=== PATIENT | female | born 1955 | race Caucasian/White ===

== ENCOUNTER → 2023-12-08 13:24 | Outpatient (REF) | payer MEDICARE, SELFPAY | LOC: WDC 13:24 | PROVIDERS: ATTENDING PHYSICIAN Family Medicine | DX: R92.30 Dense breasts, unspecified (principal); R92.2 Inconclusive mammogram | CPT/HCPCS: 76641 ==

== ENCOUNTER 2024-04-03 09:58 | Emergency (ER) | payer MEDICARE, SELFPAY ==
[2024-04-03 10:02] VITALS: BP 103/61
--- NOTE | 2024-04-03 11:41 | EDRN ---
the pt has a RCW central line noted, provider aware, the pt pressed the call ivy and this RN entered the pts room, the pt stated that she needed to urinate, this RN unhooked the pt from the monitor and the pt was able to ambulate x1 assist to the
bathroom and back to the stretcher with no issues, will continue to monitor the pt closely
[2024-04-03 12:00] VITALS: BP 115/75
--- NOTE | 2024-04-03 12:40 | ED.GENMED ---
History of Present Illness
General
Chief Complaint: Catheter/Tube Problem
Source: patient and spouse
Time Seen by Provider: 04/03/24 10:17
Nursing documentation reviewed up to this point in time: agreed with
History of Present Illness
History of Present Illness:
The patient is a pleasant 68-year-old female with past medical history of pulmonary hypertension, followed by Dr. Josephine Guillaume at [facility]. Patient reports that she is here because her right chest wall catheter has torn. Patient reports
that the infusion of the Renodolin is no longer going in due to the torn catheter. She is asking if we can replace or repair the catheter. Patient denies any other complaints including chest pain, shortness of breath, fever and chills. The
patient reports that her catheter was placed and repaired at [facility].
Past History
Past History
ED Past Medical History: Arrthythmia (afib on Xarelto), CHF (Diastolic heart failure), Hypercholesterolemia, Other (pulmonary htn ) and Other (Neurofibromatosis)
ED Past Surgical History: , Gynecological and Other (Noncontributory )
Social History
Tobacco: Non-smoker
Alcohol: None
Drug: None
Personal:
Living: with family
Family History
Family History: CAD
Review of Systems
Review of Systems
Allergies reviewed?: Yes
All Other Systems: ROS reviewed and negative except as documented in HPI and ROS
Constitutional: Reports no symptoms
EENT: Reports no symptoms
Respiratory: Reports no symptoms
ABD/GI: Reports no symptoms
: Reports no symptoms
Musculoskeletal: Reports no symptoms
Skin: Reports no symptoms
Neurological: Reports no symptoms
Endocrine: Reports no symptoms
Hematologic/Lymphatic: Reports no symptoms
Psychiatric: Reports no symptoms
Phy Exam
Physical Exam
Physical Exam:
Physical Exam
General: no apparent distress, not acutely ill
Neck: supple.
Heart: s1/s2 regular rate and rhythm, no murmur. equal radial pulses.
Lungs: no acute respiratory distress. Right chest wall Mendez central line catheter with a tiny tear of the distal catheter
Abdomen: normal bowel sounds. not tender. no CVAT
Neuro: alert and oriented. no focal neurological deficits
Skin: no rash
Psychiatric: well kept. interactive and cooperative
Extremities: no edema.
Course
Vital Signs
Initial and Last Documented VS:
Initial Vital Signs
Temp Pulse Resp BP Pulse Ox
97.8 F 88 18 103/61 93
04/03/24 10:02 04/03/24 10:02 04/03/24 10:02 04/03/24 10:02 04/03/24 10:02
Last Documented Vital Signs
Temp Pulse Resp BP Pulse Ox
98.5 F 105 16 115/75 96
04/03/24 12:00 04/03/24 12:00 04/03/24 12:00 04/03/24 12:00 04/03/24 12:00
MDM/Problems Addressed
Differential Diagnosis Includes:
Torn Mendez catheter that needs replacement, torn Mendez catheter that can be repaired
MDM/Problems Addressed:
Patient presents with torn Mendez catheter
Chronic conditions affecting care:
Pulmonary hypertension
*Pulse Oximetry
Patient hypoxic: no
*EKG
Interpreted by ED Provider?: NA
*Statistics Manager Interpretation
Rate: Statistics Manager- N/A
*Critical Care Note
Total Time (30-74mins, 75-104mins- exclusive of procedures): Not Applicable
Patient Management
Social determinants of health affecting care: Living situation and Strong social support
Discussion with other providers: Other (Case discussed with Dr. Tripp from interventional radiology who reports that he is unable to repair or replace the Mnedez catheter)
Escalation/DeEscalation of care consider admission/obs:
Patient looks extremely well and stable. Patient and understand that we are unable to replace or repair her Mendez catheter. Patient and her report that they will drive straight from here to [facility] emergency department to get the
issue with her catheter resolved. Patient is not interested in me transferring her to [facility], which I think is reasonable given that she looks so well and stable. Her is very able to drive her
ED Attending Note
-
Portions of this chart may have been created with voice recognition software.� Occasional wrong word or��sound alike� substitutions may have occurred due to the inherent limitations of voice recognition software.
Discharge Plan
Departure
Patient Disposition: Home (Routine Discharge)
Date of Disposition: 04/03/24
Time of Disposition: 12:34
Patient with high blood pressure during this ER visit?: No
Condition: Good
Covid-19: Not Applicable
Discharge Problem:
Mendez catheter dysfunction
Instructions: Central Line Catheter
Prescriptions:
No Action
levothyroxine 100 MCG tablet
100 mcg PO MOTUWETHFRSA
spironolactone 50 MG tablet
50 mg PO HS
levothyroxine 100 MCG tablet
200 mcg PO TERRELL
bosentan 125 mg Tablet
125 mg PO BID
lovastatin 20 MG tablet
10 mg PO HS
treprostinil sodium [Remodulin] 5 MG/ML solution
0.3 ml SC ORDERED RATE
Patient Comments:
0.3/hour; vial 100mg/20ml. This is a continuous infusion on the pump.
melatonin 1 mg Tablet
2 mg PO HS PRN (Reason: sleep)
calcium carbonate-vitamin D3 [Calcium 500 + D] 500 mg-10 mcg (400 unit) Tablet
2 tab PO HS
tadalafil (pulm. hypertension) 20 MG tablet
40 mg PO DAILY
multivitamin Tablet
1 tab PO DAILY
loperamide 2 mg Tablet
2 mg PO MOWEFR
famotidine 20 mg Tablet
20 mg PO DAILY PRN (Reason: heartburn)
ferrous sulfate 325 mg (65 mg iron) Tablet
325 mg PO HS
dorzolamide 2 % drops
1 drp LEFT EYE BID
potassium chloride 10 mEq tablet,ER particles/crystals
20 meq PO HS
Systane (PF) 0.4-0.3 % Dropperette
1 drp BOTH EYES Q6H PRN (Reason: dry eyes)
mecobalamin (vitamin B12) 1,000 mcg Tablet,Disintegrating
1,000 mcg SUBLINGUAL Q48H
mecobalamin (vitamin B12) 1,000 mcg Tablet,Disintegrating
2,000 mcg SUBLINGUAL Q48H
Refresh Optive 1-0.9 % Drops,Gel
1 drp RIGHT EYE BID
Systane Complete PF 0.6 % Drops
1 drp ophthalmic (eye) BID
Rx Instructions:
LEFT EYE
Cbd Oil
1 dose PO DAILY PRN (Reason: shoulder & back pain)
Xarelto 20 MG tablet
20 mg PO HS
ipratropium-albuterol 0.5 mg-3 mg(2.5 mg base)/3 mL Solution For Nebulization
3 ml inhalation R Q4HPRN PRN (Reason: SOB, COUGH, WHEEZE) Qty: 90 0RF
prednisone 10 mg Tablet
30 mg PO DAILY Qty: 9 0RF
Rx Instructions:
take 3 tabs on 08/20, then 2 tabs daily (20mg) x 2 days, then 1 tab (10mg) x 2 days
diltiazem HCl 180 mg Capsule,Extended Release 24hr
180 mg PO BID Qty: 60 0RF
furosemide 80 mg Tablet
80 mg PO DAILY Qty: 30 0RF
Referrals:
Caren Dickerson DO [Family Provider] -
Activity Restrictions/Additional Instructions:
Proceed to [place] emergency department to discuss replacement/repair of your Mendez catheter
Interventions
Interventions:
*Risk Screen - Suicide Last Done: 04/03/24 10:06
*General Assessment Last Done: 04/03/24 10:06
*Neglect/Abuse Screening Last Done: 04/03/24 10:06
ED- Fall Risk Assessment Last Done: 04/03/24 11:00
*ED COVID-19 Vaccine History Last Done: 04/03/24 11:00
*Nursing Disposition Last Done: 04/03/24 12:44
RK-Xpwwtd-Tibzonopvs Assessment Last Done: 04/03/24 11:00
ED-Female Genitourinary Assessment Last Done: 04/03/24 11:00
Discharge Date and Time
Discharge Date/Time: 04/03/24 12:44
Print Language: BENGALI
== END 2024-04-03 12:44 | disposition home or self-care (01) ==
LOC: EMR 09:58
PROVIDERS: EMERGENCY PHYSICIAN Emergency Medicine; FAMILY PHYSICIAN Family Medicine
DX: T82.514A Breakdown (mechanical) of infusion catheter, initial encounter (principal); Y83.8 Other surgical procedures as the cause of abnormal reaction of the patient, or of later complication, without mention of misadventure at the time of the procedure; I48.91 Unspecified atrial fibrillation; I27.20 Pulmonary hypertension, unspecified; Q85.00 Neurofibromatosis, unspecified; I50.32 Chronic diastolic (congestive) heart failure; E78.00 Pure hypercholesterolemia, unspecified; G43.909 Migraine, unspecified, not intractable, without status migrainosus; M81.0 Age-related osteoporosis without current pathological fracture; E03.9 Hypothyroidism, unspecified; G47.30 Sleep apnea, unspecified; Z79.01 Long term (current) use of anticoagulants; Z87.01 Personal history of pneumonia (recurrent)
CPT/HCPCS: 99283

== ENCOUNTER 2024-04-07 07:11 | Emergency (ER) | payer MEDICARE, SELFPAY ==
--- NOTE | 2024-04-07 07:36 | ED.GENMED ---
History of Present Illness
General
Chief Complaint: CODE
Time Seen by Provider: 04/07/24 07:36
History of Present Illness
History of Present Illness:
HPI: I spoke to EMS for history. The patient reportedly was found down around 6 AM. EMS was called for '[facility]'. Upon their arrival, the patient was completely unresponsive. She was pulseless. She was given a total of 7 rounds of epinephrine
and was given some push doses of epinephrine as well. She rarely had a pulse. She reportedly had a pulse just prior to arrival but arrived pulseless in the emergency department. The patient provides no history.
At 7:40 AM, I spoke to family in the quiet room which indicates that the patient went to the bathroom, pulled her pants up, and family heard her collapse. They indicated that she could only bear weight on 1 leg.
EXAM:
GENERAL: The patient is completely unresponsive, she does have a Remodulin drip infusing
HEENT: The pupils are fixed and dilated right greater than left
CARDIOVASCULAR: No spontaneous cardiac activity
PULMONARY: The patient is intubated
ABDOMEN: Soft
NEUROLOGIC: The patient is nonverbal, does not respond to painful stimuli, pupils are fixed and dilated
PSYCHIATRIC: Nonverbal
EXTREMITIES: No spontaneous movement of extremities
SKIN: Mottled skin noted
TIME OF INITIAL ENCOUNTER: 7:15 AM
NUMBER AND COMPLEXITY OF PROBLEMS ADDRESSED AT THE ENCOUNTER
� Chronic conditions affecting care: Pulmonary hypertension
� Acute Exacerbation and/or Progression of Chronic Illness: This is an acute problem
� Differential Diagnosis includes: Cardiac arrest, head injury
AMOUNT AND/OR COMPLEXITY OF DATA TO BE REVIEWED AND ANALYZED
� I performed an independent evaluation of and my interpretation is:
EKG:
CT:
X-rays:
Laboratory Studies:
Other:
� Review of other/old records: Old records indicate the patient is also on Xarelto and was here with Mendez catheter dysfunction 4 days ago
� Clinical information was obtained by an independent historian: I spoke to EMS initially that I spoke to and daughter
� Prescriptions/Medications Considered but not given:
� Further testing considered but not performed:
RISK OF COMPLICATIONS AND/OR MORBIDITY OR MORTALITY OF PATIENT MANAGEMENT
� Social determinants of health affecting care: Lives at home
� Discussion with other providers: Notified Dr. Gonzales, we will complete her portion of the test certificate, certified medical technician also notified
� Escalation of care including admission/observation vs risk of discharge considered: The patient was given additional round of epinephrine here along with chest compressions for approximately 10 minutes. There has been no
pulses throughout her stay in the emergency department. Given the prolonged downtime, decision was was made to terminate efforts. The patient was pronounced at 7:27 AM.
Past History
Past History
ED Past Medical History: Arrthythmia (afib on Xarelto), CHF (Diastolic heart failure), Hypercholesterolemia, Other (pulmonary htn ) and Other (Neurofibromatosis)
ED Past Surgical History: , Gynecological and Other (Noncontributory )
Social History
Tobacco: Non-smoker
Alcohol: None
Drug: None
Personal:
Living: with family
Family History
Family History: CAD
Phy Exam
Physical Exam
Physical Exam:
See HPI
Procedures
Other
Indication for procedure:: Cardiac arrest
Consent form signed: No
If no, reason: Emergency procedure
Additional Procedure:
Chest compressions performed under my direct supervision by techs
*Critical Care Note
Total Time (30-74mins, 75-104mins- exclusive of procedures): Not Applicable
ED Attending Note
-
Portions of this chart may have been created with voice recognition software.� Occasional wrong word or��sound alike� substitutions may have occurred due to the inherent limitations of voice recognition software.
Discharge Plan
Departure
Patient Disposition:
Date of Disposition: 04/07/24
Time of Disposition: 07:36
Discharge Problem:
Cardiac arrest
Prescriptions:
No Action
levothyroxine 100 MCG tablet
100 mcg PO MOTUWETHFRSA
spironolactone 50 MG tablet
50 mg PO HS
levothyroxine 100 MCG tablet
200 mcg PO TERRELL
bosentan 125 mg Tablet
125 mg PO BID
lovastatin 20 MG tablet
10 mg PO HS
treprostinil sodium [Remodulin] 5 MG/ML solution
0.3 ml SC ORDERED RATE
Patient Comments:
0.3/hour; vial 100mg/20ml. This is a continuous infusion on the pump.
melatonin 1 mg Tablet
2 mg PO HS PRN (Reason: sleep)
calcium carbonate-vitamin D3 [Calcium 500 + D] 500 mg-10 mcg (400 unit) Tablet
2 tab PO HS
tadalafil (pulm. hypertension) 20 MG tablet
40 mg PO DAILY
multivitamin Tablet
1 tab PO DAILY
loperamide 2 mg Tablet
2 mg PO MOWEFR
famotidine 20 mg Tablet
20 mg PO DAILY PRN (Reason: heartburn)
ferrous sulfate 325 mg (65 mg iron) Tablet
325 mg PO HS
dorzolamide 2 % drops
1 drp LEFT EYE BID
potassium chloride 10 mEq tablet,ER particles/crystals
20 meq PO HS
Systane (PF) 0.4-0.3 % Dropperette
1 drp BOTH EYES Q6H PRN (Reason: dry eyes)
mecobalamin (vitamin B12) 1,000 mcg Tablet,Disintegrating
1,000 mcg SUBLINGUAL Q48H
mecobalamin (vitamin B12) 1,000 mcg Tablet,Disintegrating
2,000 mcg SUBLINGUAL Q48H
Refresh Optive 1-0.9 % Drops,Gel
1 drp RIGHT EYE BID
Systane Complete PF 0.6 % Drops
1 drp ophthalmic (eye) BID
Rx Instructions:
LEFT EYE
Cbd Oil
1 dose PO DAILY PRN (Reason: shoulder & back pain)
Xarelto 20 MG tablet
20 mg PO HS
ipratropium-albuterol 0.5 mg-3 mg(2.5 mg base)/3 mL Solution For Nebulization
3 ml inhalation R Q4HPRN PRN (Reason: SOB, COUGH, WHEEZE) Qty: 90 0RF
prednisone 10 mg Tablet
30 mg PO DAILY Qty: 9 0RF
Rx Instructions:
take 3 tabs on 08/20, then 2 tabs daily (20mg) x 2 days, then 1 tab (10mg) x 2 days
diltiazem HCl 180 mg Capsule,Extended Release 24hr
180 mg PO BID Qty: 60 0RF
furosemide 80 mg Tablet
80 mg PO DAILY Qty: 30 0RF
Discharge Date and Time
Print Language: ITALIAN
== END 2024-04-07 09:47 | disposition expired ==
LOC: EMR 07:11
PROVIDERS: EMERGENCY PHYSICIAN Emergency Medicine
DX: I46.9 Cardiac arrest, cause unspecified (principal); E78.00 Pure hypercholesterolemia, unspecified; I27.20 Pulmonary hypertension, unspecified; I48.91 Unspecified atrial fibrillation; I50.32 Chronic diastolic (congestive) heart failure; Z79.01 Long term (current) use of anticoagulants; Z82.49 Family history of ischemic heart disease and other diseases of the circulatory system
CPT/HCPCS: 99282